=== PATIENT | female | born 1970 | race Caucasian/White ===

== ENCOUNTER 2020-11-17 23:08 | Inpatient (IN) | payer BC ==
[~2020-11-17] VITALS: Ht 157.5 cm; Wt 62.9 kg
--- NOTE | 2020-11-17 23:36 | PHYS DOC ---
Past Medical History Past Medical History: COPD Past Surgical History: Other Additional Past Surgical Histo: lumbar fusion, tubal ligation General Adult EDM: Chief Complaint: SHORTNESS OF BREATH HPI: HPI: Patient is a 50 year old female with a history of COPD current smoker who presents to the ED today complaining of shortness of breath, cough, fevers, body aches and chills, symptoms began on Tuesday last week. Patient states she was diagnosed with COVID-19 on Tuesday last week. Denies any chest pain. She states she has tried her breathing treatments with no relief to her symptoms. She is in the ED with her with similar symptoms Review of Systems: Review of Systems: Constitutional: Reports fevers and chills, body aches Eyes: Denies change in visual acuity. [] HENT: Denies nasal congestion or sore throat. [] Respiratory: Reports cough and shortness of breath. [] Cardiovascular: Denies chest pain or edema. [] GI: Denies abdominal pain, nausea, vomiting, bloody stools or diarrhea. [] : Denies dysuria. [] Musculoskeletal: Denies back pain or joint pain. [] Integument: Denies rash. [] Neurologic: Denies headache, focal weakness or sensory changes. [] Psychiatric: Denies depression or anxiety. [] Heart Score: C/O Chest Pain: N/A Risk Factors: Risk Factors: DM, Current or recent (<one month) smoker, HTN, HLP, family history of CAD, obesity. Risk Scores: Score 0 - 3: 2.5% MACE over next 6 weeks - Discharge Home Score 4 - 6: 20.3% MACE over next 6 weeks - Admit for Clinical Observation Score 7 - 10: 72.7% MACE over next 6 weeks - Early Invasive Strategies Current Medications: Current Medications Medications (Trade) Dose Ordered Sig/Arthur Start Time Stop Time Status Last Admin Dose Admin Dexamethasone Sodium Phosphate (Decadron) 10 mg 1X ONCE 11/17/20 23:30 11/17/20 23:31 UNV Physical Exam: PE: Constitutional: Well developed, well nourished, no acute distress, non-toxic appearance. [] HENT: Normocephalic, atraumatic, bilateral external ears normal, oropharynx moist, no oral exudates, nose normal. [] Eyes: PERRLA, EOMI, conjunctiva normal, no discharge. [] Neck: Normal range of motion, no tenderness, supple, no stridor. [] Cardiovascular:Heart rate regular rhythm Lungs & Thorax: Diminished breath sounds Abdomen: Bowel sounds normal, soft, no tenderness, no masses, no pulsatile masses. [] Skin: Warm, dry, no erythema, no rash. [] Back: No tenderness, no CVA tenderness. [] Extremities: No tenderness, no cyanosis, no clubbing, ROM intact, no edema. [] Neurologic: Alert and oriented X 3, normal motor function, normal sensory function, no focal deficits noted. [] Psychologic: Affect normal, judgement normal, mood normal. [] Current Patient Data: Vital Signs: Vital Signs Date Time Temp Pulse Resp B/P (MAP) Pulse Ox O2 Delivery O2 Flow Rate FiO2 11/17/20 23:25 98.7 73 28 117/59 83 Room Air 98.7 EKG: EK interpreted by Dr. Brower sinus rhythm heart rate 69 no STEMI [] Radiology/Procedures: Radiology/Procedures: []PROCEDURE: PORTABLE CHEST 1V EXAMINATION: Chest radiograph. VIEWS: Single view COMPARISON: None INDICATION:50 years, Female, shortness of breath. FINDINGS: Normal cardiomediastinal silhouette. Patchy airspace opacities in in bibasilar lungs. Possible trace bilateral pleural effusions. No pneumothorax. No acute osseous process. IMPRESSION: Patchy airspace opacities in bibasilar. Differential includes mild interstitial pulmonary edema, subsegmental atelectatic changes and less likely pneumonia. Possible trace bilateral pleural effusions. Electronically signed by: Moises Sagastume MD (11/17/2020 11:52 PM) [facility] DICTATED and SIGNED BY: MOISES SAGASTUME MD DATE: 11/17/20 [id number] Course & Med Decision Making: Course & Med Decision Making Pertinent Labs and Imaging studies reviewed. (See chart for details) This is a 50-year-old female patient current smoker history of COPD presenting today complaining of shortness of breath, body aches, chills, fevers, symptoms began on Tuesday last week. She was diagnosed with COVID-19 a week ago. Arrives in the ED with O2 sats at 83% on room air. She was put on 6 L of oxygen, she went up to 96%. We later dropped her down to 4 L of oxygen and she is satting 95%. Temperature is 98.7. Respiration 28 on room air but has come down on oxygen. Blood pressure 117/59. Patient was given Decadron on arrival to the ED CBC with no acute findings, CMP with potassium of 3.3, patient was given oral potassium replacement. Chest x-ray interpreted by radiologist was noted for patchy airspace opacities in bibasilar. Differential includes mild interstitial pulmonary edema, subsegmental atelectatic changes and less likely pneumonia. Possible trace bilateral pleural effusions. Patient was admitted under Dr. Zhu. Dr. Brower will give Dr. Zhu report Dragon Disclaimer: Magda Disclaimer: This electronic medical record was generated, in whole or in part, using a voice recognition dictation system. Departure Departure Impression: Primary Impression: Lab test positive for detection of COVID-19 virus Additional Impression: Respiratory failure Qualified Codes: J96.01 - Acute respiratory failure with hypoxia Disposition: ADMITTED INPATIENT Condition: STABLE LAYTON MESSINA EDGING MACHINE CATCHER Nov 17, 2020 23:36
--- NOTE | 2020-11-17 23:55 | RAD ---
EXAMINATION: Chest radiograph. VIEWS: Single view COMPARISON: None INDICATION:50 years, Female, shortness of breath. FINDINGS: Normal cardiomediastinal silhouette. Patchy airspace opacities in in bibasilar lungs. Possible trace bilateral pleural effusions. No pneumothorax. No acute osseous process. IMPRESSION: Patchy airspace opacities in bibasilar. Differential includes mild interstitial pulmonary edema, subs egmental atelectatic changes and less likely pneumonia. Possible trace bilateral pleural effusions. Electronically signed by: Lisandro Sagastume MD (11/17/2020 11:52 PM) [facility]
[2020-11-18] LABS: BASO % 0 % (0-3); EOS % 1 % (0-3); HEMATOCRIT 46.7 % (36.0-47.0); HEMOGLOBIN 15.4 g/dL (12.0-15.5); LYMPH # 1.8 x10^3/uL (1.0-4.8); LYMPH % 20 % (24-48); MEAN CORPUSCULAR HEMOGLOBIN 27 pg (25-35); MEAN CORPUSCULAR HGB CONC 33 g/dL (31-37); MEAN CORPUSCULAR VOLUME 81 fL (79-100); MONO # 0.5 x10^3/uL (0.0-1.1); MONO % 6 % (0-9); NEUT # 6.6 x10^3/uL (1.8-7.7); NEUT % 73 % (31-73); PLATELET COUNT 326 x10^3/uL (140-400); RED BLOOD COUNT 5.77 x10^6/uL (3.50-5.40); RED CELL DISTRIBUTION WIDTH 14.1 % (11.5-14.5)
[2020-11-18 00:10] LABS: CALCIUM 9.2 mg/dL (8.5-10.1); CREATININE 0.7 mg/dL (0.6-1.0); GFR 87.9; POTASSIUM 3.3 mmol/L (3.5-5.1)
[2020-11-18] MEDS ORDERED: DEXAMETHASONE SOD PHOS 20 MG/5 ML VIAL. IV ONE (00:15)
[2020-11-18 00:18] LABS: ALBUMIN/GLOBULIN RATIO 0.7 (1.0-1.7); MAGNESIUM 2.3 mg/dL (1.8-2.4); TOTAL BILIRUBIN 0.4 mg/dL (0.2-1.0); TOTAL PROTEIN 7.6 g/dL (6.4-8.2)
[2020-11-18] MEDS ORDERED: ONDANSETRON PF 4 MG/2 ML VIAL. IVP PRN (00:45)
[2020-11-18] MEDS ORDERED: ACETAMINOPHEN 325 MG TABLET. PO PRN ×3 (00:45→15:15)
[2020-11-18] MEDS ORDERED: MORPHINE SULFATE 2 MG/ML INJ. IVP PRN (00:45)
[2020-11-18] MEDS ORDERED: POTASSIUM CHLORIDE 20 MEQ TABLET.ER. PO ONE (01:00)
--- NOTE | 2020-11-18 02:13 | EKG ---
[facility] [address] [place] [address] Test Date: 2020-11-18 Test Time: 00:32:10 Pat Name: CJ FAGAN Department: Room: Gender: F Car Restorer: : 1970 Requested By: LAYTON MESSINA Order Number: [id number] Reading MD: Measurements Intervals [place] Rate: 69 P: 41 GA: 170 QRS: 64 QRSD: 74 T: 67 QT: 392 QTc: 426 Interpretive Statements SINUS RHYTHM NORMAL ECG RI6.02 Compared to ECG 11/18/2020 00:24:00 No significant changes
[2020-11-18 02:17] LABS: % BANDS 1 % (0-9); % LYMPHS 27 % (24-48); % MONOS 3 % (0-10); % MYELOS 1 % (0-0); % SEGS 68 % (35-66); PLT ESTIMATE ADEQUATE (ADEQUATE)
--- NOTE | 2020-11-18 02:32 | EKG ---
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 (Measurements might be questionable) RI6.02 No previous ECG available for comparison
[2020-11-18 02:45] VITALS: BP 102/61
[2020-11-18] MEDS ORDERED: ALPR0.5T PO (02:52)
[2020-11-18] MEDS ORDERED: ALBU2.5V8 IH (02:52)
[2020-11-18 07:00] VITALS: BP 107/65
--- NOTE | 2020-11-18 08:40 | PDOC1 ---
History and Physical Date of Admission Date of Admission DATE: 11/18/20 TIME: 08:40 Identification/Chief Complaint Chief Complaint SOA, COUGH, COVID POS History of Present Illness History of Present Illness diagnosed with COVID-19 on Tuesday last week. Denies chest pain. she has tried her breathing treatments with no relief to her symptoms.Seen in ED with her with similar symptoms requiring 4 liters NC O2 50 year old female with a history of COPD current smoker who presented to the ED today complaining of shortness of breath, cough, fevers, body aches and chills, symptoms began on 11-14 k low at 3.0 pneumonia positive COVID-19 virus Patchy airspace opacities in bibasilar. / TOBACCO ABUSE DISORDER / Respiratory failure, ACUTE HYPOXIC on o2 support plan---ADMITTED consider REMDESEVIR protocol /IV DECADRON 6 mg daily O2 SUPPORT /ZINC /MVI VIT C / COUGH SYRUP DVT prophylaxis lovenox 40 mg sq bid /pulm consult Past Medical History Past Medical History Past Medical History Past Medical History Past Medical History: COPD Past Surgical History: Other Additional Past Surgical Histo: lumbar fusion, tubal ligation FHX COPD Family History Family History: High Cholestrol, Hypertension Social History Smoke: <1 pack per day ALCOHOL: occassional Drugs: None Current Problem List Problem List Problems Medical Problems: (1) Lab test positive for detection of COVID-19 virus Status: Acute (2) Respiratory failure Status: Acute Current Medications Current Medications Current Medications Dexamethasone Sodium Phosphate (Decadron) 10 mg 1X ONCE IV Last administered on 11/18/20at 00:56; Start 11/18/20 at 00:15; Stop 11/18/20 at 00:16; Status DC Potassium Chloride (Klor-Con) 40 meq 1X ONCE PO Last administered on 11/18/20at 00:59; Start 11/18/20 at 01:00; Stop 11/18/20 at 01:01; Status DC Ondansetron HCl (Zofran) 4 mg PRN Q8HRS PRN IVP NAUSEA/VOMITING 1ST CHOICE Last administered on 11/18/20at 00:58; Start 11/18/20 at 00:45; Stop 11/19/20 at 00:44 Morphine Sulfate (Morphine Sulfate) 2 mg PRN Q2HR PRN IVP SEVERE PAIN 7-10; Start 11/18/20 at 00:45; Stop 11/19/20 at 00:44 Acetaminophen (Tylenol) 650 mg PRN Q4HRS PRN PO FEVER > 100.3'F; Start 11/18/20 at 00:45; Stop 11/19/20 at 00:44 Active Scripts Active Reported Xanax (Alprazolam) 0.5 Mg Tablet 1 Tab PO TID PRN Proair Hfa Inhaler (Albuterol Sulfate) 8.5 Gm Hfa.aer.ad 2 Puff IH PRN Q4-6HRS PRN 21 Days Allergies Allergies: Coded Allergies: No Known Drug Allergies (Unverified , 11/17/20) ROS Review of System Constitutional: fevers and chills, body aches Eyes: Denies change in visual acuity. [] HENT: Denies nasal congestion or sore throat. [] Respiratory: Reports cough and shortness of breath. [] Cardiovascular: Denies chest pain or edema. [] GI: Denies abdominal pain, nausea, vomiting, bloody stools or diarrhea. [] : Denies dysuria. [] Musculoskeletal: Denies back pain or joint pain. [] Integument: Denies rash. [] Neurologic: Denies headache, focal weakness or sensory changes. [] Psychiatric: Denies depression or anxiety. [] 14 PT ROS OTHERWISE NEG Physical Exam Physical Exam Constitutional: Well developed, well nourished, no acute distress, non-toxic appearance. [] HENT: Normocephalic, atraumatic, bilateral external ears normal, oropharynx moist, no oral exudates, nose normal. [] Eyes: PERRLA, EOMI, conjunctiva normal, no discharge. [] Neck: Normal range of motion, no tenderness, supple, no stridor. [] Cardiovascular:Heart rate regular rhythm Lungs & Thorax: Diminished breath sounds Abdomen: Bowel sounds normal, soft, no tenderness, no masses, no pulsatile masses. [] Skin: Warm, dry, no erythema, no rash. [] Back: No tenderness, no CVA tenderness. [] Extremities: No tenderness, no cyanosis, no clubbing, ROM intact, no edema. [] Neurologic: Alert and oriented X 3, normal motor function, normal sensory function, no focal deficits noted. [] Psychologic: Affect normal, judgement normal, mood normal. [] General: Oriented X3, Cooperative HEENT: EOMI, Mucous membr. moist/pink Heart: RRR Breasts: Not examined Abdomen: Soft Rectal Exam: not examined PELVIC: Examination not indicated Extremities: No cyanosis Neuro: Normal speech, Cranial nerves 3-12 NL Psych/Mental Status: Mental status NL, Mood NL Vitals Vitals Vital Signs Date Time Temp Pulse Resp B/P (MAP) Pulse Ox O2 Delivery O2 Flow Rate FiO2 11/18/20 03:19 Nasal Cannula 4.0 11/18/20 02:45 96.7 69 17 102/61 (75) 92 96.7 Labs Labs Laboratory Tests Test 11/17/20 23:40 White Blood Count 9.0 x10^3/uL (4.0-11.0) Red Blood Count 5.77 x10^6/uL (3.50-5.40) Hemoglobin 15.4 g/dL (12.0-15.5) Hematocrit 46.7 % (36.0-47.0) Mean Corpuscular Volume 81 fL (79-100) Mean Corpuscular Hemoglobin 27 pg (25-35) Mean Corpuscular Hemoglobin Concent 33 g/dL (31-37) Red Cell Distribution Width 14.1 % (11.5-14.5) Platelet Count 326 x10^3/uL (140-400) Neutrophils (%) (Auto) 73 % (31-73) Lymphocytes (%) (Auto) 20 % (24-48) Monocytes (%) (Auto) 6 % (0-9) Eosinophils (%) (Auto) 1 % (0-3) Basophils (%) (Auto) 0 % (0-3) Neutrophils # (Auto) 6.6 x10^3/uL (1.8-7.7) Lymphocytes # (Auto) 1.8 x10^3/uL (1.0-4.8) Monocytes # (Auto) 0.5 x10^3/uL (0.0-1.1) Eosinophils # (Auto) 0.0 x10^3/uL (0.0-0.7) Basophils # (Auto) 0.0 x10^3/uL (0.0-0.2) Segmented Neutrophils % 68 % (35-66) Band Neutrophils % 1 % (0-9) Lymphocytes % 27 % (24-48) Monocytes % 3 % (0-10) Myelocytes % 1 % (0-0) Platelet Estimate Adequate (ADEQUATE) Sodium Level 143 mmol/L (136-145) Potassium Level 3.3 mmol/L (3.5-5.1) Chloride Level 103 mmol/L (98-107) Carbon Dioxide Level 32 mmol/L (21-32) Anion Gap 8 (6-14) Blood Urea Nitrogen 18 mg/dL (7-20) Creatinine 0.7 mg/dL (0.6-1.0) Estimated GFR (Cockcroft-Gault) 87.9 BUN/Creatinine Ratio 26 (6-20) Glucose Level 107 mg/dL (70-99) Lactic Acid Level 1.1 mmol/L (0.4-2.0) Calcium Level 9.2 mg/dL (8.5-10.1) Magnesium Level 2.3 mg/dL (1.8-2.4) Total Bilirubin 0.4 mg/dL (0.2-1.0) Aspartate Amino Transf (AST/SGOT) 33 U/L (15-37) Alanine Aminotransferase (ALT/SGPT) 96 U/L (14-59) Alkaline Phosphatase 159 U/L (46-116) Troponin I Quantitative < 0.017 ng/mL (0.000-0.055) ZG-Ptb-V-Type Natriuretic Peptide 17 pg/mL (0-124) Total Protein 7.6 g/dL (6.4-8.2) Albumin 3.0 g/dL (3.4-5.0) Albumin/Globulin Ratio 0.7 (1.0-1.7) Procalcitonin < 0.10 ng/mL (0.00-0.10) Laboratory Tests Test 11/17/20 23:40 White Blood Count 9.0 x10^3/uL (4.0-11.0) Red Blood Count 5.77 x10^6/uL (3.50-5.40) Hemoglobin 15.4 g/dL (12.0-15.5) Hematocrit 46.7 % (36.0-47.0) Mean Corpuscular Volume 81 fL (79-100) Mean Corpuscular Hemoglobin 27 pg (25-35) Mean Corpuscular Hemoglobin Concent 33 g/dL (31-37) Red Cell Distribution Width 14.1 % (11.5-14.5) Platelet Count 326 x10^3/uL (140-400) Neutrophils (%) (Auto) 73 % (31-73) Lymphocytes (%) (Auto) 20 % (24-48) Monocytes (%) (Auto) 6 % (0-9) Eosinophils (%) (Auto) 1 % (0-3) Basophils (%) (Auto) 0 % (0-3) Neutrophils # (Auto) 6.6 x10^3/uL (1.8-7.7) Lymphocytes # (Auto) 1.8 x10^3/uL (1.0-4.8) Monocytes # (Auto) 0.5 x10^3/uL (0.0-1.1) Eosinophils # (Auto) 0.0 x10^3/uL (0.0-0.7) Basophils # (Auto) 0.0 x10^3/uL (0.0-0.2) Segmented Neutrophils % 68 % (35-66) Band Neutrophils % 1 % (0-9) Lymphocytes % 27 % (24-48) Monocytes % 3 % (0-10) Myelocytes % 1 % (0-0) Platelet Estimate Adequate (ADEQUATE) Sodium Level 143 mmol/L (136-145) Potassium Level 3.3 mmol/L (3.5-5.1) Chloride Level 103 mmol/L (98-107) Carbon Dioxide Level 32 mmol/L (21-32) Anion Gap 8 (6-14) Blood Urea Nitrogen 18 mg/dL (7-20) Creatinine 0.7 mg/dL (0.6-1.0) Estimated GFR (Cockcroft-Gault) 87.9 BUN/Creatinine Ratio 26 (6-20) Glucose Level 107 mg/dL (70-99) Lactic Acid Level 1.1 mmol/L (0.4-2.0) Calcium Level 9.2 mg/dL (8.5-10.1) Magnesium Level 2.3 mg/dL (1.8-2.4) Total Bilirubin 0.4 mg/dL (0.2-1.0) Aspartate Amino Transf (AST/SGOT) 33 U/L (15-37) Alanine Aminotransferase (ALT/SGPT) 96 U/L (14-59) Alkaline Phosphatase 159 U/L (46-116) Troponin I Quantitative < 0.017 ng/mL (0.000-0.055) XH-Bub-A-Type Natriuretic Peptide 17 pg/mL (0-124) Total Protein 7.6 g/dL (6.4-8.2) Albumin 3.0 g/dL (3.4-5.0) Albumin/Globulin Ratio 0.7 (1.0-1.7) Procalcitonin < 0.10 ng/mL (0.00-0.10) Images Images PATIENT: CJ FAGAN ACCOUNT: [id number] : 1970 LOCATION: ER AGE: 50 SEX: F EXAM STATUS: REG ER ORD. PHYSICIAN: LAYTON MESSINA APRN REASON: SOA PROCEDURE: PORTABLE CHEST 1V EXAMINATION: Chest radiograph. VIEWS: Single view COMPARISON: None INDICATION:50 years, Female, shortness of breath. FINDINGS: Normal cardiomediastinal silhouette. Patchy airspace opacities in in bibasilar lungs. Possible trace bilateral pleural effusions. No pneumothorax. No acute osseous process. IMPRESSION: Patchy airspace opacities in bibasilar. Differential includes mild interstitial pulmonary edema, subsegmental atelectatic changes and less likely pneumonia. Possible trace bilateral pleural effusions. Electronically signed by: Moises Sagastume MD (11/17/2020 11:52 PM) [facility] DICTATED and SIGNED BY: MOISES SAGASTUME MD DATE: 11/17/20 [id number] PATIENT: CJ FAGAN ACCOUNT: [id number] : 1970 LOCATION: ER AGE: 50 SEX: F EXAM STATUS: REG ER ORD. PHYSICIAN: LAYTON MESSINA APRN REASON: SOA PROCEDURE: PORTABLE CHEST 1V EXAMINATION: Chest radiograph. VIEWS: Single view COMPARISON: None INDICATION:50 years, Female, shortness of breath. FINDINGS: Normal cardiomediastinal silhouette. Patchy airspace opacities in in bibasilar lungs. Possible trace bilateral pleural effusions. No pneumothorax. No acute osseous process. IMPRESSION: Patchy airspace opacities in bibasilar. Differential includes mild interstitial pulmonary edema, subsegmental atelectatic changes and less likely pneumonia. Possible trace bilateral pleural effusions. Electronically signed by: Moises Sagastume MD (11/17/2020 11:52 PM) [facility] DICTATED and SIGNED BY: MOISES SAGASTUME MD DATE: 11/17/20 [id number] VTE Prophylaxis Ordered VTE Prophylaxis Devices: No VTE Pharmacological Prophylaxi: Yes Assessment/Plan Assessment/Plan Impression: pneumonia positive COVID-19 virus Patchy airspace opacities in bibasilar. TOBACCO ABUSE DISORDER Respiratory failure, ACUTE HYPOXIC plan ADMITTED REMDESEVIR protocol IV DECADRON O2 SUPPORT ZINC MVI VIT C CODEINE COUGH SYRUP DVT prophylaxis pulm consult Justifications for Admission Other Justification ROSALES WALSH MD Nov 18, 2020 08:40
[2020-11-18 11:00] VITALS: BP 90/64
[2020-11-18] MEDS ORDERED: 0.9 % SODIUM CHLORIDE 10 ML DISP.SYRIN. IV PRN ×2 (12:00→15:15)
[2020-11-18] MEDS ORDERED: ALBUTEROL SULFATE 2.5 MG/3 ML NEBU. NEB PRN (12:00)
[2020-11-18] MEDS ORDERED: ONDANSETRON PF 4 MG/2 ML VIAL. IV PRN ×2 (12:00→15:15)
[2020-11-18] MEDS ORDERED: MAG HYDROX/ALUMINUM HYD/SIMETH 30 ML ORAL.SUSP PO PRN ×2 (12:00→15:15)
[2020-11-18] MEDS ORDERED: DOCUSATE SODIUM 100 MG CAPSULE. PO PRN ×2 (12:00→15:15)
[2020-11-18] MEDS ORDERED: guaiFENesin ORAL 200 MG/10 ML LIQUID. PO PRN (12:00)
[2020-11-18] MEDS ORDERED: SODIUM PHOSPHATES 19/7GM 133 ML ENEMA. PR PRN (12:00)
--- NOTE | 2020-11-18 12:55 | NUR ---
SW following. Discussed with RN, pt from home with , 3L (does not use oxygen at home), cardiac diet. PT/OT ordered. COVID-19 positive. Pt feeling better today. 6 minute walk needed prior to discharge. SW will continue to follow.
[2020-11-18 15:00] VITALS: BP 107/67
[2020-11-18] MEDS: IV NORMAL SALINE 1000ML BAG 1,000 ML IV SCH (18:06)
[2020-11-18] MEDS: ZINC SULFATE 220 MG CAPSULE. PO SCH (18:07)
[2020-11-18] MEDS: VITAMIN B COMPLEX TABLET. PO SCH (18:07)
[2020-11-18 19:00] VITALS: BP 99/62
[2020-11-18] MEDS: ALBUTEROL SULFATE 8GM INHALER. INH PRN (20:24)
[2020-11-18] MEDS: ENOXAPARIN 40 MG/0.4 ML SYRINGE. SQ SCH (20:25)
[2020-11-18] MEDS ORDERED: ENOXAPARIN 40 MG/0.4 ML SYRINGE. SQ SCH (21:00)
[2020-11-18 23:00] VITALS: BP 93/52
[2020-11-19 03:00] VITALS: BP 100/56
[2020-11-19 07:00] VITALS: BP 95/57
[2020-11-19 08:24] LABS: CALCIUM 8.5 mg/dL (8.5-10.1); CREATININE 0.6 mg/dL (0.6-1.0); POTASSIUM 4.2 mmol/L (3.5-5.1)
[2020-11-19] MEDS: VITAMIN B COMPLEX TABLET. PO SCH (08:46)
[2020-11-19] MEDS: IV NORMAL SALINE 1000ML BAG 1,000 ML IV SCH ×3 (08:46→22:47)
[2020-11-19] MEDS: ASCORBIC ACID 500 MG TABLET PO SCH (08:47)
[2020-11-19] MEDS: POTASSIUM CHLORIDE 20 MEQ TABLET.ER. PO SCH (08:47)
[2020-11-19] MEDS: DEXAMETHASONE SOD PHOS 4 MG/ML VIAL IVP SCH (08:47)
[2020-11-19] MEDS: ZINC SULFATE 220 MG CAPSULE. PO SCH (08:47)
[2020-11-19] MEDS: ENOXAPARIN 40 MG/0.4 ML SYRINGE. SQ SCH ×2 (08:58→20:54)
--- NOTE | 2020-11-19 10:01 | PDOC ---
PROGRESS NOTES Date of Service: DATE: 11/19/20 TIME: 10:01 Chief Complaint Chief Complaint MPRESSION: Patchy airspace opacities in bibasilar. Differential includes mild interstitial pulmonary edema, subsegmental atelectatic changes and less likely pneumonia. Possible trace bilateral pleural effusions. Electronically signed by: Moises Sagastume MD (11/17/2020 11:52 PM) [facility] DICTATED and SIGNED BY: MOISES SAGASTUME MD DATE: 11/17/20 [id number] VTE Prophylaxis Ordered VTE Prophylaxis Devices: No VTE Pharmacological Prophylaxi: Yes Assessment/Plan Assessment/Plan Impression: pneumonia positive COVID-19 virus Patchy airspace opacities in bibasilar. TOBACCO ABUSE DISORDER Respiratory failure, ACUTE HYPOXIC plan ADMITTED REMDESEVIR protocol IV DECADRON O2 SUPPORT ZINC MVI VIT C CODEINE COUGH SYRUP DVT prophylaxis pulm consult Justifications for Admission Justifications for Admission Other Justification History of Present Illness History of Present Illness Identification/Chief Complaint Chief Complaint SOA, COUGH, COVID POS History of Present Illness History of Present Illness diagnosed with COVID-19 on Tuesday last week. Denies chest pain. she has tried her breathing treatments with no relief to her symptoms.Seen in ED with her with similar symptoms requiring 4 liters NC O2 50 year old female with a history of COPD current smoker who presented to the ED today complaining of shortness of breath, cough, fevers, body aches and chills, symptoms began on Tuesday 8- k low at 3.0 pneumonia positive COVID-19 virus Patchy airspace opacities in bibasilar. / TOBACCO ABUSE DISORDER / Respiratory failure, ACUTE HYPOXIC on o2 support plan---ADMITTED consider REMDESEVIR protocol /IV DECADRON 6 mg daily O2 SUP PORT /ZINC /MVI VIT C / COUGH SYRUP DVT prophylaxis lovenox 40 mg sq bid /pulm consult Past Medical History Past Medical History Past Medical History Past Medical History Past Medical History: COPD Past Surgical History: Other Additional Past Surgical Histo: lumbar fusion, tubal ligation FHX COPD Family History Family History: High Cholestrol, Hypertension Social History Smoke: <1 pack per day ALCOHOL: occassional Drugs: None Current Problem List Problem List Problems Medical Problems: (1) Lab test positive for detection of COVID-19 virus Status: Acute (2) Respiratory failure Status: Acute Current Medications Current Medications Current Medications Dexamethasone Sodium Phosphate (Decadron) 10 mg 1X ONCE IV Last administered on 11/18/20at 00:56; Start 11/18/20 at 00:15; Stop 11/18/20 at 00:16; Status DC Potassium Chloride (Klor-Con) 40 meq 1X ONCE PO Last administered on 11/18/20at 00:59; Start 11/18/20 at 01:00; Stop 11/18/20 at 01:01; Status DC Ondansetron HCl (Zofran) 4 mg PRN Q8HRS PRN IVP NAUSEA/VOMITING 1ST CHOICE Last administered on 11/18/20at 00:58; Start 11/18/20 at 00:45; Stop 11/19/20 at 00:44 Morphine Sulfate (Morphine Sulfate) 2 mg PRN Q2HR PRN IVP SEVERE PAIN 7-10; Start 11/18/20 at 00:45; Stop 11/19/20 at 00:44 Acetaminophen (Tylenol) 650 mg PRN Q4HRS PRN PO FEVER > 100.3'F; Start 11/18/20 at 00:45; Stop 11/19/20 at 00:44 Active Scripts Active Reported Xanax (Alprazolam) 0.5 Mg Tablet 1 Tab PO TID PRN Proair Hfa Inhaler (Albuterol Sulfate) 8.5 Gm Hfa.aer.ad 2 Puff IH PRN Q4-6HRS PRN 21 Days Allergies Allergies: Coded Allergies: No Known Drug Allergies (Unverified , 11/17/20) ROS Review of System Constitutional: fevers and chills, body aches Eyes: Denies change in visual acuity. [] HENT: Denies nasal congestion or sore throat. [] Respiratory: Reports cough and shortness of breath. [] Cardiovascular: Denies chest pain or edema. [] GI: Denies abdominal pain, nausea, vomiting, bloody stools or diarrhea. [] : Denies dysuria. [] Musculoskeletal: Denies back pain or joint pain. [] Integument: Denies rash. [] Neurologic: Denies headache, focal weakness or sensory changes. [] Psychiatric: Denies depression or anxiety. [] 14 PT ROS OTHERWISE NEG 9-01 pneumonia positive COVID-19 virus Patchy airspace opacities in bibasilar. TOBACCO ABUSE DISORDER Respiratory failure, ACUTE HYPOXIC D/W RN PROTOCOL remdesivir. dexamethasone for 10 days per protocol. Lovenox for DVT prophylaxis. No empiric antibiotics. Vitals Vitals Vital Signs Date Time Temp Pulse Resp B/P (MAP) Pulse Ox O2 Delivery O2 Flow Rate FiO2 11/19/20 07:00 97.8 54 18 95/57 (70) 97 97.8 11/18/20 20:00 Nasal Cannula 5.0 Physical Exam General: Alert, Oriented X3, Cooperative, No acute distress Abdomen: Normal bowel sounds, Soft, No tenderness Extremities: No clubbing, No cyanosis, No edema Labs LABS Laboratory Tests Test 11/19/20 06:55 Sodium Level 143 mmol/L (136-145) Potassium Level 4.2 mmol/L (3.5-5.1) Chloride Level 107 mmol/L (98-107) Carbon Dioxide Level 29 mmol/L (21-32) Anion Gap 7 (6-14) Blood Urea Nitrogen 21 mg/dL (7-20) Creatinine 0.6 mg/dL (0.6-1.0) Estimated GFR (Cockcroft-Gault) 105.0 Glucose Level 138 mg/dL (70-99) Calcium Level 8.5 mg/dL (8.5-10.1) Assessment and Plan Assessmemt and Plan Problems Medical Problems: (1) Lab test positive for detection of COVID-19 virus Status: Acute (2) Respiratory failure Status: Acute Comment Review of Relevant I have reviewed the following items jaswinder (where applicable) has been applied. Labs Laboratory Tests Test 11/17/20 23:40 11/19/20 06:55 White Blood Count 9.0 x10^3/uL (4.0-11.0) Red Blood Count 5.77 x10^6/uL (3.50-5.40) Hemoglobin 15.4 g/dL (12.0-15.5) Hematocrit 46.7 % (36.0-47.0) Mean Corpuscular Volume 81 fL (79-100) Mean Corpuscular Hemoglobin 27 pg (25-35) Mean Corpuscular Hemoglobin Concent 33 g/dL (31-37) Red Cell Distribution Width 14.1 % (11.5-14.5) Platelet Count 326 x10^3/uL (140-400) Neutrophils (%) (Auto) 73 % (31-73) Lymphocytes (%) (Auto) 20 % (24-48) Monocytes (%) (Auto) 6 % (0-9) Eosinophils (%) (Auto) 1 % (0-3) Basophils (%) (Auto) 0 % (0-3) Neutrophils # (Auto) 6.6 x10^3/uL (1.8-7.7) Lymphocytes # (Auto) 1.8 x10^3/uL (1.0-4.8) Monocytes # (Auto) 0.5 x10^3/uL (0.0-1.1) Eosinophils # (Auto) 0.0 x10^3/uL (0.0-0.7) Basophils # (Auto) 0.0 x10^3/uL (0.0-0.2) Segmented Neutrophils % 68 % (35-66) Band Neutrophils % 1 % (0-9) Lymphocytes % 27 % (24-48) Monocytes % 3 % (0-10) Myelocytes % 1 % (0-0) Platelet Estimate Adequate (ADEQUATE) Sodium Level 143 mmol/L (136-145) 143 mmol/L (136-145) Potassium Level 3.3 mmol/L (3.5-5.1) 4.2 mmol/L (3.5-5.1) Chloride Level 103 mmol/L (98-107) 107 mmol/L (98-107) Carbon Dioxide Level 32 mmol/L (21-32) 29 mmol/L (21-32) Anion Gap 8 (6-14) 7 (6-14) Blood Urea Nitrogen 18 mg/dL (7-20) 21 mg/dL (7-20) Creatinine 0.7 mg/dL (0.6-1.0) 0.6 mg/dL (0.6-1.0) Estimated GFR (Cockcroft-Gault) 87.9 105.0 BUN/Creatinine Ratio 26 (6-20) Glucose Level 107 mg/dL (70-99) 138 mg/dL (70-99) Lactic Acid Level 1.1 mmol/L (0.4-2.0) Calcium Level 9.2 mg/dL (8.5-10.1) 8.5 mg/dL (8.5-10.1) Magnesium Level 2.3 mg/dL (1.8-2.4) Total Bilirubin 0.4 mg/dL (0.2-1.0) Aspartate Amino Transf (AST/SGOT) 33 U/L (15-37) Alanine Aminotransferase (ALT/SGPT) 96 U/L (14-59) Alkaline Phosphatase 159 U/L (46-116) Troponin I Quantitative < 0.017 ng/mL (0.000-0.055) [id number]-Type Natriuretic Peptide 17 pg/mL (0-124) Total Protein 7.6 g/dL (6.4-8.2) Albumin 3.0 g/dL (3.4-5.0) Albumin/Globulin Ratio 0.7 (1.0-1.7) Procalcitonin < 0.10 ng/mL (0.00-0.10) Laboratory Tests Test 11/19/20 06:55 Sodium Level 143 mmol/L (136-145) Potassium Level 4.2 mmol/L (3.5-5.1) Chloride Level 107 mmol/L (98-107) Carbon Dioxide Level 29 mmol/L (21-32) Anion Gap 7 (6-14) Blood Urea Nitrogen 21 mg/dL (7-20) Creatinine 0.6 mg/dL (0.6-1.0) Estimated GFR (Cockcroft-Gault) 105.0 Glucose Level 138 mg/dL (70-99) Calcium Level 8.5 mg/dL (8.5-10.1) Microbiology 11/17/20 Blood Culture - Preliminary, Resulted NO GROWTH AFTER 1 DAY Medications Current Medications Dexamethasone Sodium Phosphate (Decadron) 10 mg 1X ONCE IV Last administered on 11/18/20at 00:56; Start 11/18/20 at 00:15; Stop 11/18/20 at 00:16; Status DC Potassium Chloride (Klor-Con) 40 meq 1X ONCE PO Last administered on 11/18/20at 00:59; Start 11/18/20 at 01:00; Stop 11/18/20 at 01:01; Status DC Ondansetron HCl (Zofran) 4 mg PRN Q8HRS PRN IVP NAUSEA/VOMITING 1ST CHOICE Last administered on 11/18/20at 00:58; Start 11/18/20 at 00:45; Stop 11/19/20 at 00:44; Status DC Morphine Sulfate (Morphine Sulfate) 2 mg PRN Q2HR PRN IVP SEVERE PAIN 7-10; Start 11/18/20 at 00:45; Stop 11/19/20 at 00:44; Status DC Acetaminophen (Tylenol) 650 mg PRN Q4HRS PRN PO FEVER > 100.3'F; Start 11/18/20 at 00:45; Stop 11/19/20 at 00:44; Status DC Sodium Chloride (Normal Saline Flush) 3 ml QSHIFT PRN IV AFTER MEDS AND BLOOD DRAWS; Start 11/18/20 at 12:00 Ondansetron HCl (Zofran) 4 mg PRN Q4HRS PRN IV NAUSEA/VOMITING; Start 11/18/20 at 12:00 Acetaminophen (Tylenol) 650 mg PRN Q4HRS PRN PO TEMP OVER 100.4F OR MILD PAIN; Start 11/18/20 at 12:00 Al Hydroxide/Mg Hydroxide (Mylanta Plus Xs) 30 ml PRN DAILY PRN PO HEARTBURN / GAS; Start 11/18/20 at 12:00 Sodium Monofluorophosphate (Fleet Adult) 133 ml PRN DAILY PRN IN CONSTIPATION; Start 11/18/20 at 12:00 Docusate Sodium (Colace) 100 mg PRN BID PRN PO HARD STOOLS; Start 11/18/20 at 12:00 Albuterol Sulfate (Ventolin Neb Soln) 2.5 mg PRN Q4HRS PRN NEB SHORTNESS OF BREATH; Start 11/18/20 at 12:00 Guaifenesin (Robitussin) 200 mg PRN Q4HRS PRN PO COUGH; Start 11/18/20 at 12:00 Enoxaparin Sodium (Lovenox 40mg Syringe) 40 mg BID SQ ; Start 11/18/20 at 21:00 Dexamethasone Sodium Phosphate (Decadron) 6 mg DAILY IVP Last administered on 11/19/20at 08:47; Start 11/19/20 at 09:00 Sodium Chloride (Normal Saline Flush) 3 ml QSHIFT PRN IV AFTER MEDS AND BLOOD DRAWS; Start 11/18/20 at 15:15; Status UNV Sodium Chloride 1,000 ml @ 100 mls/hr Q10H IV Last administered on 11/19/20at 08:46; Start 11/18/20 at 15:15 Ondansetron HCl (Zofran) 4 mg PRN Q4HRS PRN IV NAUSEA/VOMITING; Start 11/18/20 at 15:15; Status UNV Acetaminophen (Tylenol) 650 mg PRN Q4HRS PRN PO TEMP OVER 100.4F OR MILD PAIN; Start 11/18/20 at 15:15; Status UNV Al Hydroxide/Mg Hydroxide (Mylanta Plus Xs) 30 ml PRN DAILY PRN PO HEARTBURN / GAS; Start 11/18/20 at 15:15; Status UNV Docusate Sodium (Colace) 100 mg PRN BID PRN PO HARD STOOLS; Start 11/18/20 at 15:15; Status UNV Enoxaparin Sodium (Lovenox 40mg Syringe) 40 mg BID SQ ; Start 11/18/20 at 21:00; Status UNV Ascorbic Acid (Vitamin C) 500 mg DAILY PO Last administered on 11/19/20at 08:47; Start 11/19/20 at 09:00 Zinc Sulfate (Orazinc) 220 mg DAILY PO Last administered on 11/19/20at 08:47; Start 11/18/20 at 16:00 Vitamin B Complex (Eulalio B) 1 tab DAILY PO Last administered on 11/19/20at 08:46; Start 11/18/20 at 16:00 Potassium Chloride (Klor-Con) 20 meq DAILYWBKFT PO Last administered on 11/19/20at 08:47; Start 11/19/20 at 08:00 Albuterol Sulfate (Ventolin Hfa) 1 puff PRN Q6HRS PRN INH SHORTNESS OF BREATH Last administered on 11/18/20at 20:24; Start 11/18/20 at 20:00 Active Scripts Active Reported Xanax (Alprazolam) 0.5 Mg Tablet 1 Tab PO TID PRN Proair Hfa Inhaler (Albuterol Sulfate) 8.5 Gm Hfa.aer.ad 2 Puff IH PRN Q4-6HRS PRN 21 Days Vitals/I & O Vital Sign - Last 24 Hours 11/18/20 11/18/20 11/18/20 11/18/20 11:00 15:00 19:00 20:00 Temp 97.4 98.0 97.5 97.4 98.0 97.5 Pulse 67 72 66 Resp 24 26 18 B/P (MAP) 90/64 (73) 107/67 (80) 99/62 (74) Pulse Ox 92 90 93 O2 Delivery Room Air Nasal Cannula Nasal Cannula O2 Flow Rate 3.0 5.0 5.0 11/18/20 11/19/20 11/19/20 23:00 03:00 07:00 Temp 97.7 97.4 97.8 97.7 97.4 97.8 Pulse 66 59 54 Resp 16 16 18 B/P (MAP) 93/52 (66) 100/56 (71) 95/57 (70) Pulse Ox 93 98 97 Intake and Output 11/18/20 11/18/20 11/19/20 15:00 23:00 07:00 Intake Total 240 ml 120 ml 400 ml Balance 240 ml 120 ml 400 ml Justicifation of Admission Dx: Justifications for Admission: Justification of Admission Dx: Yes Comminuty Aquired Pneumonia: Hypoxemia ROSALES WALSH MD Nov 19, 2020 10:01
--- NOTE | 2020-11-19 10:37 | NUR ---
SW following. Discussed with RN, pt from home with , 5L (does not use oxygen at home), cardiac diet. Pt will need a 6 minute walk prior to discharge. COVID-19 positive. SW will continue to follow.
[2020-11-19 11:00] VITALS: BP 90/58
--- NOTE | 2020-11-19 11:08 | CONS ---
DATE OF CONSULTATION: 11/19/2020 ATTENDING PHYSICIAN: Dr. Zhu. REASON FOR CONSULTATION: Respiratory failure, COVID-19 pneumonia. HISTORY OF PRESENT ILLNESS: The patient is a 50-year-old who has been a smoker for more than 25 years. She still smokes. She was brought into the hospital complaining of dyspnea. She has a mild nonproductive cough. She has some body aches, chills and some subjective fevers. The patient did not receive any COVID-19 vaccination. She was tested positive recently. The patient is currently on oxygen at 4 liters. The patient is not on home oxygen. Chest x-ray revealed faint basal interstitial infiltrates. She is afebrile. PAST MEDICAL HISTORY: Significant for ongoing tobaccoism, likely COPD. PAST SURGICAL HISTORY: Lumbar fusion and tubal ligation. ALLERGIES: None. MEDICATIONS: Reviewed as listed in the [facility]AD including dexamethasone and Lovenox for DVT prophylaxis. REVIEW OF SYSTEMS: A 12-point system obtained. Pertinent positives discussed in my presence illness, otherwise noncontributory. All systems that were negative were reviewed as well. FAMILY HISTORY: Noncontributory to lungs. PHYSICAL EXAMINATION: Vital signs were reviewed. Afebrile, pulse ox 97% on 4 liters. Visual exam done due to COVID-19. No paradoxical breathing. No skin rash. No leg edema. LABORATORY DATA: Labs were reviewed. White cell count 9.0, hemoglobin 15.4, platelets 326. BUN 21, creatinine 0.6. IMPRESSION: 1. Acute hypoxic respiratory failure secondary to COVID-19 viral pneumonia. 2. Abnormal chest x-ray with basal patchy opacities consistent with viral pneumonia. 3. Underlying chronic obstructive pulmonary disease from 25+ years of tobaccoism. RECOMMENDATIONS: 1. Continue present oxygen. Wean FIO2 and keep saturation 92% and above. 2. Initiate remdesivir. 3. Continue dexamethasone for 10 days per protocol. 4. Lovenox for DVT prophylaxis. 5. No need for empiric antibiotics. 6. P.r.n. bronchodilators. 7. Discussed with RN. addend: Pt declined to have Remdesivir [place] DR: Kedar TID: [id number] [facility]
[2020-11-19] MEDS: REMDESIVIR LOAD in IV NORMAL SALINE 250ML TV IV ONE ×2 (12:00→12:01)
[2020-11-19] MEDS: ALBUTEROL SULFATE 8GM INHALER. INH PRN (14:22)
[2020-11-19 15:00] VITALS: BP 90/61
[2020-11-19 19:00] VITALS: BP 107/67
--- NOTE | 2020-11-19 20:01 | NUR ---
Pt spoke to Day Nurse at shift change and states she wants to go home tonight. Entered pt's room and spoke to pt and educated pt on current symptoms and pt still requiring oxygen and at this time still on IV steroids. Pt informed of her possible complications and informed of talking to the Physician in the am and informing of her concerns and being adamant of wanting to go home. Informed pt at this time she continues with symptoms and could possibly become worse if she were to go home tonight without oxygen. Pt states she verbalized understanding however wants to go home tomorrow. Informed pt to talk to the Physician tomorrow in the am during rounding. Pt verbalized understanding. Pt given incentive spirometer to use during the noc to help. Encouraged pt to use.
[2020-11-19 23:00] VITALS: BP 125/61
[2020-11-19] MEDS ORDERED: LORazepam 0.5 MG TABLET PO PRN (23:00)
[2020-11-20 03:05] VITALS: BP 93/61
[2020-11-20 07:00] VITALS: BP 88/64
[2020-11-20] MEDS: ENOXAPARIN 40 MG/0.4 ML SYRINGE. SQ SCH (09:00)
--- NOTE | 2020-11-20 09:15 | PDOC ---
PULMONARY PROGRESS NOTES DATE: 11/20/20 TIME: 09:14 Subjective Patient remains on 5 L nasal cannula. She is adamant at going home Vitals Vital Signs Date Time Temp Pulse Resp B/P (MAP) Pulse Ox O2 Delivery O2 Flow Rate FiO2 11/20/20 03:05 97.9 46 19 93/61 (72) 97 Nasal Cannula 97.9 11/19/20 20:00 5.0 Comments Visual exam done due to COVID-19. No respiratory distress no skin rash no leg edema Labs Laboratory Tests Test 11/19/20 06:55 Sodium Level 143 mmol/L (136-145) Potassium Level 4.2 mmol/L (3.5-5.1) Chloride Level 107 mmol/L (98-107) Carbon Dioxide Level 29 mmol/L (21-32) Anion Gap 7 (6-14) Blood Urea Nitrogen 21 mg/dL (7-20) Creatinine 0.6 mg/dL (0.6-1.0) Estimated GFR (Cockcroft-Gault) 105.0 Glucose Level 138 mg/dL (70-99) Calcium Level 8.5 mg/dL (8.5-10.1) Medications Active Scripts Medications Dose Route/Sig Max Daily Dose Days Date Category Xanax (Alprazolam) 0.5 Mg Tablet 1 Tab PO TID PRN 11/18/20 Reported Proair Hfa Inhaler (Albuterol Sulfate) 8.5 Gm Hfa.aer.ad 2 Puff IH PRN Q4-6HRS PRN 21 11/18/20 Reported Impression . 1. Acute hypoxic respiratory failure secondary to COVID-19 viral pneumonia. 2. Abnormal chest x-ray with basal patchy opacities consistent with viral pneumonia. 3. Underlying chronic obstructive pulmonary disease from 25+ years of tobaccoism. Plan . 1. Continue present oxygen. Wean FIO2 and keep saturation 92% and above. Currently on 5 L of oxygen. 2. Patient declined to have remdesivir. 3. Continue dexamethasone for 10 days per protocol. 4. Lovenox for DVT prophylaxis. 5. No need for empiric antibiotics. 6. P.r.n. bronchodilators. 7. Discussed with RN. Patient is adamant at leaving home. She would not want to stay at the hospital. Patient was informed that she is on 5 L of oxygen and may need up to 8 to 10 L with activity. She wants to leave AGAINST MEDICAL ADVICE. Discussed with RN and will do a 6-minute walk test and arrange oxygen MAUREEN ALVARADO MD Nov 20, 2020 09:15
[2020-11-20] MEDS: ASCORBIC ACID 500 MG TABLET PO SCH (09:45)
[2020-11-20] MEDS: VITAMIN B COMPLEX TABLET. PO SCH (09:45)
[2020-11-20] MEDS: ZINC SULFATE 220 MG CAPSULE. PO SCH (09:45)
[2020-11-20] MEDS: POTASSIUM CHLORIDE 20 MEQ TABLET.ER. PO SCH (09:46)
[2020-11-20] MEDS: DEXAMETHASONE SOD PHOS 4 MG/ML VIAL IVP SCH (09:46)
--- NOTE | 2020-11-20 09:47 | PDOC ---
PROGRESS NOTES Date of Service: DATE: 11/20/20 TIME: 09:47 Chief Complaint Chief Complaint MPRESSION: Patchy airspace opacities in bibasilar. Differential includes mild interstitial pulmonary edema, subsegmental atelectatic changes and less likely pneumonia. Possible trace bilateral pleural effusions. Electronically signed by: Moises Sagastume MD (11/17/2020 11:52 PM) [facility] DICTATED and SIGNED BY: MOISES SAGASTUME MD DATE: 11/17/20 [id number] 0 VTE Prophylaxis Ordered VTE Prophylaxis Devices: No VTE Pharmacological Prophylaxi: Yes Assessment/Plan Assessment/Plan Impression: pneumonia positive COVID-19 virus Patchy airspace opacities in bibasilar. TOBACCO ABUSE DISORDER Respiratory failure, ACUTE HYPOXIC plan ADMITTED REMDESEVIR protocol IV DECADRON O2 SUPPORT ZINC MVI VIT C CODEINE COUGH SYRUP DVT prophylaxis pulm consult Justifications for Admission Justifications for Admission Other Justification History of Present Illness History of Present Illness Identification/Chief Complaint Chief Complaint SOA, COUGH, COVID POS History of Present Illness History of Present Illness diagnosed with COVID-19 on Tuesday last week. Denies chest pain. she has tried her breathing treatments with no relief to her symptoms.Seen in ED with her with similar symptoms requiring 4 liters NC O2 50 year old female with a history of COPD current smoker who presented to the ED today complaining of shortness of breath, cough, fevers, body aches and chills, symptoms began on Tuesday 8- k low at 3.0 pneumonia positive COVID-19 virus Patchy airspace opacities in bibasilar. / TOBACCO ABUSE DISORDER / Respiratory failure, ACUTE HYPOXIC on o2 support plan---ADMITTED consider REMDESEVIR protocol /IV DECADRON 6 mg daily O2 SUP PORT /ZINC /MVI VIT C / COUGH SYRUP DVT prophylaxis lovenox 40 mg sq bid /pulm consult Past Medical History Past Medical History Past Medical History Past Medical History Past Medical History: COPD Past Surgical History: Other Additional Past Surgical Histo: lumbar fusion, tubal ligation FHX COPD Family History Family History: High Cholestrol, Hypertension Social History Smoke: <1 pack per day ALCOHOL: occassional Drugs: None Current Problem List Problem List Problems Medical Problems: (1) Lab test positive for detection of COVID-19 virus Status: Acute (2) Respiratory failure Status: Acute Current Medications Current Medications Current Medications Dexamethasone Sodium Phosphate (Decadron) 10 mg 1X ONCE IV Last administered on 11/18/20at 00:56; Start 11/18/20 at 00:15; Stop 11/18/20 at 00:16; Status DC Potassium Chloride (Klor-Con) 40 meq 1X ONCE PO Last administered on 11/18/20at 00:59; Start 11/18/20 at 01:00; Stop 11/18/20 at 01:01; Status DC Ondansetron HCl (Zofran) 4 mg PRN Q8HRS PRN IVP NAUSEA/VOMITING 1ST CHOICE Last administered on 11/18/20at 00:58; Start 11/18/20 at 00:45; Stop 11/19/20 at 00:44 Morphine Sulfate (Morphine Sulfate) 2 mg PRN Q2HR PRN IVP SEVERE PAIN 7-10; Start 11/18/20 at 00:45; Stop 11/19/20 at 00:44 Acetaminophen (Tylenol) 650 mg PRN Q4HRS PRN PO FEVER > 100.3'F; Start 11/18/20 at 00:45; Stop 11/19/20 at 00:44 Active Scripts Active Reported Xanax (Alprazolam) 0.5 Mg Tablet 1 Tab PO TID PRN Proair Hfa Inhaler (Albuterol Sulfate) 8.5 Gm Hfa.aer.ad 2 Puff IH PRN Q4-6HRS PRN 21 Days Allergies Allergies: Coded Allergies: No Known Drug Allergies (Unverified , 11/17/20) ROS Review of System Constitutional: fevers and chills, body aches Eyes: Denies change in visual acuity. [] HENT: Denies nasal congestion or sore throat. [] Respiratory: Reports cough and shortness of breath. [] Cardiovascular: Denies chest pain or edema. [] GI: Denies abdominal pain, nausea, vomiting, bloody stools or diarrhea. [] : Denies dysuria. [] Musculoskeletal: Denies back pain or joint pain. [] Integument: Denies rash. [] Neurologic: Denies headache, focal weakness or sensory changes. [] Psychiatric: Denies depression or anxiety. [] 14 PT ROS OTHERWISE NEG 11-19 pneumonia positive COVID-19 virus Patchy airspace opacities in bibasilar. TOBACCO ABUSE DISORDER Respiratory failure, ACUTE HYPOXIC D/W RN PROTOCOL remdesivir. dexamethasone for 10 days per protocol. Lovenox for DVT prophylaxis. No empiric antibiotics. 11-20 pneumonia positive COVID-19 virus Patchy airspace opacities in bibasilar. TOBACCO ABUSE DISORDER Respiratory failure, ACUTE HYPOXIC D/W RN PROTOCOL remdesivir. dexamethasone for 10 days per protocol. Lovenox for DVT prophylaxis. No empiric antibiotics. INSISTS D/C TODAY ama d/c planning 31 min Vitals Vitals Vital Signs Date Time Temp Pulse Resp B/P (MAP) Pulse Ox O2 Delivery O2 Flow Rate FiO2 11/20/20 07:00 97.2 58 18 88/64 (72) 97 Nasal Cannula 97.2 11/19/20 20:00 5.0 Physical Exam General: Alert, Oriented X3, Cooperative, No acute distress Abdomen: Normal bowel sounds, Soft, No tenderness Extremities: No clubbing, No cyanosis, No edema Assessment and Plan Assessmemt and Plan Problems Medical Problems: (1) Lab test positive for detection of COVID-19 virus Status: Acute (2) Respiratory failure Status: Acute Comment Review of Relevant I have reviewed the following items jaswinder (where applicable) has been applied. Labs Laboratory Tests Test 11/19/20 06:55 Sodium Level 143 mmol/L (136-145) Potassium Level 4.2 mmol/L (3.5-5.1) Chloride Level 107 mmol/L (98-107) Carbon Dioxide Level 29 mmol/L (21-32) Anion Gap 7 (6-14) Blood Urea Nitrogen 21 mg/dL (7-20) Creatinine 0.6 mg/dL (0.6-1.0) Estimated GFR (Cockcroft-Gault) 105.0 Glucose Level 138 mg/dL (70-99) Calcium Level 8.5 mg/dL (8.5-10.1) Microbiology 11/17/20 Blood Culture - Preliminary, Resulted NO GROWTH AFTER 2 DAYS Medications Current Medications Dexamethasone Sodium Phosphate (Decadron) 10 mg 1X ONCE IV Last administered on 11/18/20at 00:56; Start 11/18/20 at 00:15; Stop 11/18/20 at 00:16; Status DC Potassium Chloride (Klor-Con) 40 meq 1X ONCE PO Last administered on 11/18/20at 00:59; Start 11/18/20 at 01:00; Stop 11/18/20 at 01:01; Status DC Ondansetron HCl (Zofran) 4 mg PRN Q8HRS PRN IVP NAUSEA/VOMITING 1ST CHOICE Last administered on 11/18/20at 00:58; Start 11/18/20 at 00:45; Stop 11/19/20 at 00:44; Status DC Morphine Sulfate (Morphine Sulfate) 2 mg PRN Q2HR PRN IVP SEVERE PAIN 7-10; Start 11/18/20 at 00:45; Stop 11/19/20 at 00:44; Status DC Acetaminophen (Tylenol) 650 mg PRN Q4HRS PRN PO FEVER > 100.3'F; Start 11/18/20 at 00:45; Stop 11/19/20 at 00:44; Status DC Sodium Chloride (Normal Saline Flush) 3 ml QSHIFT PRN IV AFTER MEDS AND BLOOD DRAWS; Start 11/18/20 at 12:00 Ondansetron HCl (Zofran) 4 mg PRN Q4HRS PRN IV NAUSEA/VOMITING; Start 11/18/20 at 12:00 Acetaminophen (Tylenol) 650 mg PRN Q4HRS PRN PO TEMP OVER 100.4F OR MILD PAIN; Start 11/18/20 at 12:00 Al Hydroxide/Mg Hydroxide (Mylanta Plus Xs) 30 ml PRN DAILY PRN PO HEARTBURN / GAS; Start 11/18/20 at 12:00 Sodium Monofluorophosphate (Fleet Adult) 133 ml PRN DAILY PRN [place] CONSTIPATION; Start 11/18/20 at 12:00 Docusate Sodium (Colace) 100 mg PRN BID PRN PO HARD STOOLS; Start 11/18/20 at 12:00 Albuterol Sulfate (Ventolin Neb Soln) 2.5 mg PRN Q4HRS PRN NEB SHORTNESS OF BREATH; Start 11/18/20 at 12:00; Stop 11/19/20 at 12:36; Status DC Guaifenesin (Robitussin) 200 mg PRN Q4HRS PRN PO COUGH Last administered on 11/19/20at 12:02; Start 11/18/20 at 12:00 Enoxaparin Sodium (Lovenox 40mg Syringe) 40 mg BID SQ ; Start 11/18/20 at 21:00 Dexamethasone Sodium Phosphate (Decadron) 6 mg DAILY IVP Last administered on 11/20/20at 09:46; Start 11/19/20 at 09:00 Sodium Chloride (Normal Saline Flush) 3 ml QSHIFT PRN IV AFTER MEDS AND BLOOD DRAWS; Start 11/18/20 at 15:15; Status UNV Sodium Chloride 1,000 ml @ 100 mls/hr Q10H IV Last administered on 11/19/20at 22:47; Start 11/18/20 at 15:15 Ondansetron HCl (Zofran) 4 mg PRN Q4HRS PRN IV NAUSEA/VOMITING; Start 11/18/20 at 15:15; Status UNV Acetaminophen (Tylenol) 650 mg PRN Q4HRS PRN PO TEMP OVER 100.4F OR MILD PAIN; Start 11/18/20 at 15:15; Status UNV Al Hydroxide/Mg Hydroxide (Mylanta Plus Xs) 30 ml PRN DAILY PRN PO HEARTBURN / GAS; Start 11/18/20 at 15:15; Status UNV Docusate Sodium (Colace) 100 mg PRN BID PRN PO HARD STOOLS; Start 11/18/20 at 15:15; Status UNV Enoxaparin Sodium (Lovenox 40mg Syringe) 40 mg BID SQ ; Start 11/18/20 at 21:00; Status UNV Ascorbic Acid (Vitamin C) 500 mg DAILY PO Last administered on 11/20/20at 09:45; Start 11/19/20 at 09:00 Zinc Sulfate (Orazinc) 220 mg DAILY PO Last administered on 11/20/20at 09:45; Start 11/18/20 at 16:00 Vitamin B Complex (Eulalio B) 1 tab DAILY PO Last administered on 11/20/20at 09:45; Start 11/18/20 at 16:00 Potassium Chloride (Klor-Con) 20 meq DAILYWBKFT PO Last administered on 11/20/20at 09:46; Start 11/19/20 at 08:00 Albuterol Sulfate (Ventolin Hfa) 1 puff PRN Q6HRS PRN INH SHORTNESS OF BREATH Last administered on 11/19/20at 14:22; Start 11/18/20 at 20:00 Remdesivir 200 mg/ Sodium Chloride 210 ml @ 210 mls/hr 1X ONCE IV ; Start 11/19/20 at 12:00; Stop 11/19/20 at 13:15; Status DC Remdesivir 100 mg/ Sodium Chloride 230 ml @ 460 mls/hr Q24H IV ; Start 11/20/20 at 12:00; Stop 11/19/20 at 13:16; Status DC Lorazepam (Ativan) 0.5 mg PRN Q8HRS PRN PO ANXIETY / AGITATION Last administered on 11/19/20at 23:10; Start 11/19/20 at 23:00 Active Scripts Active Reported Xanax (Alprazolam) 0.5 Mg Tablet 1 Tab PO TID PRN Proair Hfa Inhaler (Albuterol Sulfate) 8.5 Gm Hfa.aer.ad 2 Puff IH PRN Q4-6HRS PRN 21 Days Vitals/I & O Vital Sign - Last 24 Hours 11/19/20 11/19/20 11/19/20 11/19/20 11:00 15:00 19:00 20:00 Temp 97.5 97.3 98.1 97.5 97.3 98.1 Pulse 61 61 65 Resp 18 18 20 B/P (MAP) 90/58 (69) 90/61 (71) 107/67 (80) Pulse Ox 97 94 94 O2 Delivery Nasal Cannula Nasal Cannula O2 Flow Rate 5.0 11/19/20 11/20/20 11/20/20 23:00 03:05 07:00 Temp 97.9 97.9 97.2 97.9 97.9 97.2 Pulse 52 46 58 Resp 20 19 18 B/P (MAP) 125/61 (82) 93/61 (72) 88/64 (72) Pulse Ox 96 97 97 O2 Delivery Nasal Cannula Nasal Cannula Nasal Cannula Intake and Output 11/19/20 11/19/20 11/20/20 15:00 23:00 07:00 Output Total 500 ml Balance -500 ml Justicifation of Admission Dx: Justifications for Admission: Justification of Admission Dx: Yes Comminuty Aquired Pneumonia: Hypoxemia ROSALES WALSH MD Nov 20, 2020 09:47
[2020-11-20 11:00] VITALS: BP 88/57
--- NOTE | 2020-11-20 11:39 | NUR ---
SS following up with discharge planning. SS reviewed pt chart and discussed with pt RN. Pt was on nasal canula oxygen. Six minute walk completed and no home oxygen needed. Pt currently on room air. COVID19 positive. Pt on IV Decadron. Pt requesting to return to home today. Dr. Zhu notified. SS will continue to follow for discharge planning.
[2020-11-20] MEDS ORDERED: REMDESIVIR 100mg in NORMAL SALINE 250ML X 4 DAYS IV SCH (12:00)
--- NOTE | 2020-11-20 14:25 | PDOC3 ---
Discharge Summary Date of Admission: Nov 18, 2020 Date of Discharge: Nov 20, 2020 Follow-Up: Other (left AMA) Admitting Diagnosis comment: DISCHARGE DX NONCOMPLIANCE Chief Complaint MPRESSION: Patchy airspace opacities in bibasilar. Differential includes mild interstitial pulmonary edema, subsegmental atelectatic changes and less likely pneumonia. Possible trace bilateral pleural effusions. Electronically signed by: Lisandro Sagastume MD (11/17/2020 11:52 PM) [facility] DICTATED and SIGNED BY: LISANDRO SAGASTUME MD DATE: 11/17/20 [id number] 0 VTE Prophylaxis Ordered VTE Prophylaxis Devices: No VTE Pharmacological Prophylaxi: Yes Assessment/Plan Assessment/Plan Impression: pneumonia positive COVID-19 virus Patchy airspace opacities in bibasilar. TOBACCO ABUSE DISORDER Respiratory failure, ACUTE HYPOXIC plan ADMITTED REMDESEVIR protocol IV DECADRON O2 SUPPORT ZINC MVI VIT C CODEINE COUGH SYRUP DVT prophylaxis pulm consult LEFT AMA 11-20-20 Justifications for Admission Justifications for Admission Other Justification History of Present Illness History of Present Illness Identification/Chief Complaint Chief Complaint SOA, COUGH, COVID POS History of Present Illness History of Present Illness diagnosed with COVID-19 on Tuesday last week. Denies chest pain. she has tried her breathing treatments with no relief to her symptoms.Seen in ED with her with similar symptoms requiring 4 liters NC O2 50 year old female with a history of COPD current smoker who presented to the ED today complaining of shortness of breath, cough, fevers, body aches and chills, symptoms began on Tuesday 8-27 k low at 3.0 pneumonia positive COVID-19 virus Patchy airspace opacities in bibasilar. / TOBACCO ABUSE DISORDER / Respiratory failure, ACUTE HYPOXIC on o2 support plan---ADMITTED consider REMDESEVIR protocol /IV DECADRON 6 mg daily O2 SUPPORT /ZINC /MVI VIT C / COUGH SYRUP DVT prophylaxis lovenox 40 mg sq bid /pulm consult Past Medical History Past Medical History Past Medical History Past Medical History Past Medical History: COPD Past Surgical History: Other Additional Past Surgical Histo: lumbar fusion, tubal ligation FHX COPD Family History Family History: High Cholestrol, Hypertension Social History Smoke: <1 pack per day ALCOHOL: occassional Drugs: None Current Problem List Problem List Problems Medical Problems: (1) Lab test positive for detection of COVID-19 virus Status: Acute (2) Respiratory failure Status: Acute Current Medications Current Medications Current Medications Dexamethasone Sodium Phosphate (Decadron) 10 mg 1X ONCE IV Last administered on 11/18/20at 00:56; Start 11/18/20 at 00:15; Stop 11/18/20 at 00:16; Status DC Potassium Chloride (Klor-Con) 40 meq 1X ONCE PO Last administered on 11/18/20at 00:59; Start 11/18/20 at 01:00; Stop 11/18/20 at 01:01; Status DC Ondansetron HCl (Zofran) 4 mg PRN Q8HRS PRN IVP NAUSEA/VOMITING 1ST CHOICE Last administered on 11/18/20at 00:58; Start 11/18/20 at 00:45; Stop 11/19/20 at 00:44 Morphine Sulfate (Morphine Sulfate) 2 mg PRN Q2HR PRN IVP SEVERE PAIN 7-10; Start 11/18/20 at 00:45; Stop 11/19/20 at 00:44 Acetaminophen (Tylenol) 650 mg PRN Q4HRS PRN PO FEVER > 100.3'F; Start 11/18/20 at 00:45; Stop 11/19/20 at 00:44 Active Scripts Active Reported Xanax (Alprazolam) 0.5 Mg Tablet 1 Tab PO TID PRN Proair Hfa Inhaler (Albuterol Sulfate) 8.5 Gm Hfa.aer.ad 2 Puff IH PRN Q4-6HRS PRN 21 Days Allergies Allergies: Coded Allergies: No Known Drug Allergies (Unverified , 11/17/20) ROS Review of System Constitutional: fevers and chills, body aches Eyes: Denies change in visual acuity. [] HENT: Denies nasal congestion or sore throat. [] Respiratory: Reports cough and shortness of breath. [] Cardiovascular: Denies chest pain or edema. [] GI: Denies abdominal pain, nausea, vomiting, bloody stools or diarrhea. [] : Denies dysuria. [] Musculoskeletal: Denies back pain or joint pain. [] Integument: Denies rash. [] Neurologic: Denies headache, focal weakness or sensory changes. [] Psychiatric: Denies depression or anxiety. [] 14 PT ROS OTHERWISE NEG 11-19 pneumonia positive COVID-19 virus Patchy airspace opacities in bibasilar. TOBACCO ABUSE DISORDER Respiratory failure, ACUTE HYPOXIC D/W RN PROTOCOL remdesivir. dexamethasone for 10 days per protocol. Lovenox for DVT prophylaxis. No empiric antibiotics. 11-20 pneumonia positive COVID-19 virus Patchy airspace opacities in bibasilar. TOBACCO ABUSE DISORDER Respiratory failure, ACUTE HYPOXIC D/W RN PROTOCOL remdesivir. dexamethasone for 10 days per protocol. Lovenox for DVT prophylaxis. No empiric antibiotics. INSISTS D/C TODAY ama d/c planning 31 min Vitals Vitals Vital Signs Date Time Temp Pulse Resp B/P (MAP) Pulse Ox O2 Delivery O2 Flow Rate FiO2 11/20/20 07:00 97.2 58 18 88/64 (72) 97 Nasal Cannula 97.2 11/19/20 20:00 5.0 Physical Exam General: Alert, Oriented X3, Cooperative, No acute distress Abdomen: Normal bowel sounds, Soft, No tenderness Extremities: No clubbing, No cyanosis, No edema Assessment and Plan Assessmemt and Plan Problems Medical Problems: (1) Lab test positive for detection of COVID-19 virus Status: Acute (2) Respiratory failure Status: Acute FINAL DIAGNOSIS Problems Medical Problems: (1) Lab test positive for detection of COVID-19 virus Status: Acute (2) Respiratory failure Status: Acute Brief Hospital Course Ms. Sebastian is a 50 old [sex] who presented with [ ] CONDITION AT DISCHARGE: Comment (LEFT AMA) Discharge Medications Current Medications Dexamethasone Sodium Phosphate (Decadron) 10 mg 1X ONCE IV Last administered on 11/18/20at 00:56; Start 11/18/20 at 00:15; Stop 11/18/20 at 00:16; Status DC Potassium Chloride (Klor-Con) 40 meq 1X ONCE PO Last administered on 11/18/20at 00:59; Start 11/18/20 at 01:00; Stop 11/18/20 at 01:01; Status DC Ondansetron HCl (Zofran) 4 mg PRN Q8HRS PRN IVP NAUSEA/VOMITING 1ST CHOICE Last administered on 11/18/20at 00:58; Start 11/18/20 at 00:45; Stop 11/19/20 at 00:44; Status DC Morphine Sulfate (Morphine Sulfate) 2 mg PRN Q2HR PRN IVP SEVERE PAIN 7-10; Start 11/18/20 at 00:45; Stop 11/19/20 at 00:44; Status DC Acetaminophen (Tylenol) 650 mg PRN Q4HRS PRN PO FEVER > 100.3'F; Start 11/18/20 at 00:45; Stop 11/19/20 at 00:44; Status DC Sodium Chloride (Normal Saline Flush) 3 ml QSHIFT PRN IV AFTER MEDS AND BLOOD DRAWS; Start 11/18/20 at 12:00 Ondansetron HCl (Zofran) 4 mg PRN Q4HRS PRN IV NAUSEA/VOMITING; Start 11/18/20 at 12:00 Acetaminophen (Tylenol) 650 mg PRN Q4HRS PRN PO TEMP OVER 100.4F OR MILD PAIN; Start 11/18/20 at 12:00 Al Hydroxide/Mg Hydroxide (Mylanta Plus Xs) 30 ml PRN DAILY PRN PO HEARTBURN / GAS; Start 11/18/20 at 12:00 Sodium Monofluorophosphate (Fleet Adult) 133 ml PRN DAILY PRN [place] CONSTIPATION; Start 11/18/20 at 12:00 Docusate Sodium (Colace) 100 mg PRN BID PRN PO HARD STOOLS; Start 11/18/20 at 12:00 Albuterol Sulfate (Ventolin Neb Soln) 2.5 mg PRN Q4HRS PRN NEB SHORTNESS OF BREATH; Start 11/18/20 at 12:00; Stop 11/19/20 at 12:36; Status DC Guaifenesin (Robitussin) 200 mg PRN Q4HRS PRN PO COUGH Last administered on 11/19/20at 12:02; Start 11/18/20 at 12:00 Enoxaparin Sodium (Lovenox 40mg Syringe) 40 mg BID SQ ; Start 11/18/20 at 21:00 Dexamethasone Sodium Phosphate (Decadron) 6 mg DAILY IVP Last administered on 11/20/20at 09:46; Start 11/19/20 at 09:00 Sodium Chloride (Normal Saline Flush) 3 ml QSHIFT PRN IV AFTER MEDS AND BLOOD DRAWS; Start 11/18/20 at 15:15; Status UNV Sodium Chloride 1,000 ml @ 100 mls/hr Q10H IV Last administered on 11/19/20at 22:47; Start 11/18/20 at 15:15 Ondansetron HCl (Zofran) 4 mg PRN Q4HRS PRN IV NAUSEA/VOMITING; Start 11/18/20 at 15:15; Status UNV Acetaminophen (Tylenol) 650 mg PRN Q4HRS PRN PO TEMP OVER 100.4F OR MILD PAIN; Start 11/18/20 at 15:15; Status UNV Al Hydroxide/Mg Hydroxide (Mylanta Plus Xs) 30 ml PRN DAILY PRN PO HEARTBURN / GAS; Start 11/18/20 at 15:15; Status UNV Docusate Sodium (Colace) 100 mg PRN BID PRN PO HARD STOOLS; Start 11/18/20 at 15:15; Status UNV Enoxaparin Sodium (Lovenox 40mg Syringe) 40 mg BID SQ ; Start 11/18/20 at 21:00; Status UNV Ascorbic Acid (Vitamin C) 500 mg DAILY PO Last administered on 11/20/20at 09:45; Start 11/19/20 at 09:00 Zinc Sulfate (Orazinc) 220 mg DAILY PO Last administered on 11/20/20at 09:45; Start 11/18/20 at 16:00 Vitamin B Complex (Eulalio B) 1 tab DAILY PO Last administered on 11/20/20at 09:45; Start 11/18/20 at 16:00 Potassium Chloride (Klor-Con) 20 meq DAILYWBKFT PO Last administered on 11/20/20at 09:46; Start 11/19/20 at 08:00 Albuterol Sulfate (Ventolin Hfa) 1 puff PRN Q6HRS PRN INH SHORTNESS OF BREATH Last administered on 11/19/20at 14:22; Start 11/18/20 at 20:00 Remdesivir 200 mg/ Sodium Chloride 210 ml @ 210 mls/hr 1X ONCE IV ; Start 11/19/20 at 12:00; Stop 11/19/20 at 13:15; Status DC Remdesivir 100 mg/ Sodium Chloride 230 ml @ 460 mls/hr Q24H IV ; Start 11/20/20 at 12:00; Stop 11/19/20 at 13:16; Status DC Lorazepam (Ativan) 0.5 mg PRN Q8HRS PRN PO ANXIETY / AGITATION Last administered on 11/19/20at 23:10; Start 11/19/20 at 23:00 Active Scripts Active Reported Xanax (Alprazolam) 0.5 Mg Tablet 1 Tab PO TID PRN Proair Hfa Inhaler (Albuterol Sulfate) 8.5 Gm Hfa.aer.ad 2 Puff IH PRN Q4-6HRS PRN 21 Days Vital Signs Vital Signs Date Time Temp Pulse Resp B/P (MAP) Pulse Ox O2 Delivery O2 Flow Rate FiO2 11/20/20 11:00 97.3 56 18 88/57 (67) 95 Nasal Cannula 4.0 97.3 Labs Laboratory Tests Test 11/19/20 06:55 Sodium Level 143 mmol/L (136-145) Potassium Level 4.2 mmol/L (3.5-5.1) Chloride Level 107 mmol/L (98-107) Carbon Dioxide Level 29 mmol/L (21-32) Anion Gap 7 (6-14) Blood Urea Nitrogen 21 mg/dL (7-20) Creatinine 0.6 mg/dL (0.6-1.0) Estimated GFR (Cockcroft-Gault) 105.0 Glucose Level 138 mg/dL (70-99) Calcium Level 8.5 mg/dL (8.5-10.1) Allergies Allergies Coded Allergies Type Severity Reaction Last Updated Verified No Known Drug Allergies 11/17/20 No Disposition/Orders: Other (LEFT AMA) Justicifation of Admission Dx: Justifications for Admission: Justification of Admission Dx: Yes Comminuty Aquired Pneumonia: Hypoxemia ROSALES WALSH MD Nov 20, 2020 14:25
--- NOTE | 2020-11-20 14:32 | NUR ---
Pt adamant on going home. Dr. Dave and this RN communicated concerns of pt going home at this time. Pt states she is going home today. Dr. Dave has discussed consequences of leaving and she would need to go against medical advice as he recommends her to stay. This RN worked with SW to get oxygen set up. Pt's 6 min walk showed she did not require oxygen. Dr. Zhu notified. Pt signed AMA, nursing janitor supervisor and security notified.
== END 2020-11-20 13:57 | disposition left against medical advice (07) | DRG 177 ==
LOC: EDBD 23:08 → ER 23:08 → 5 NORTH 11-18 00:29
PROVIDERS: ADMIT Family Medicine; ATTEND Family Medicine
PROC: XW033E5 Introduction of Remdesivir Anti-infective into Peripheral Vein, Percutaneous Approach, New Technology Group 5 (ICD-10-PCS; principal; 2020-11-19)
DX: U07.1 COVID-19 (principal); J12.82 Pneumonia due to coronavirus disease 2019; J96.01 Acute respiratory failure with hypoxia; J44.0 Chronic obstructive pulmonary disease with (acute) lower respiratory infection; F17.210 Nicotine dependence, cigarettes, uncomplicated; Z82.49 Family history of ischemic heart disease and other diseases of the circulatory system; Z82.5 Family history of asthma and other chronic lower respiratory diseases; Z53.29 Procedure and treatment not carried out because of patient's decision for other reasons; Z98.51 Tubal ligation status
CPT/HCPCS: 36415; 71045; 80048; 80053; 83605; 83735; 83880; 84145; 84484; 85007; 85025; 87040; 93005; 94618; 96374; 96375; 99406; J1100; J2405; J7030; J7050; 99285-25; G0378